=== PATIENT | female | born 1940 | race Caucasian/White ===

== ENCOUNTER 2018-07-11 09:38 | Day surgery (SDC) | payer MEDICARE, OTHER ==
[2018-07-05 11:33] VITALS: BMI 20.9
[~2018-07-11 09:38] MED LIST: DEXAMETHASONE SOD PHOSPHATE 10 MG/ML 1 ML VIAL IV ONE; HYDROmorphone 0.5 MG/0.5 ML SYRINGE IVP PRN; LACTATED RINGERS 1,000 ML IV SCH; LIDOCAINE 1% 20 ML VIAL (10MG/ML) FOR IV START INTRADERMA PRN; LIDOCAINE VISCOUS 2% 15 ML CUP MUCOUS MEM ONE; ONDANSETRON 4 MG/2 ML VIAL IVP ONE; SCOPOLAMINE 1.5MG/72HR PATCH TRANSDERM ONE
[2018-07-11] MEDS ORDERED: LIDOCAINE HCL/PF 20 MG/ML ML INHALATION ONE (10:15)
[2018-07-11 10:16] VITALS: TEMP 98.4
[2018-07-11 10:18] LABS: Glucose,Whole Blood 75 mg/dL (75-99)
[2018-07-11] MEDS: ALBUTEROL NEB (CONC) 2.5 MG/0.5 ML INHALATION ONE (10:29)
[2018-07-11] MEDS ORDERED: LIDOCAINE 1% INJ 10MG/ML (20 ML MDV) ONE (11:01)
[2018-07-11] MEDS ORDERED: PROPOFOL 10 MG/ML 20 ML VIAL IV ONE (11:01)
[2018-07-11] MEDS ORDERED: KETAMINE 10 MG/ML 20 ML VIAL ONE (11:01)
[2018-07-11 11:23] VITALS: RESP 18
[2018-07-11 11:36] VITALS: BP 158/78; PULSE 103
--- NOTE | 2018-07-11 11:53 | PCN ---
PROCEDURE NOTE PROCEDURE: Bronchoscopy, airway examination, therapeutic lavage, BAL right middle lobe. PREOPERATIVE DIAGNOSIS: Pneumonia. POSTOPERATIVE DIAGNOSIS: Pneumonia. there was informed consent. There was universal timeout. The procedure was done by Dr. Turner and Dr. Steinbreg, [employer] provided general anesthesia/unconscious sedation. After the patient was adequately sedated and being fully monitored, the bronchoscope was inserted through the right nostril. It passed through the right nasopharynx into the oropharynx. The hypopharynx was identified and topicalized. The hypopharyngeal structures including anterior commissure, true cords, false cords, arytenoids, piriform sinuses, right and left vallecula and epiglottis all appear normal. After topicalization, the bronchoscope was pushed through the glottic opening into the trachea. Trachea appeared normal. Tracheal danae was sharp. Right and left mainstem were topicalized. Right upper lobe and its 3 segments, right middle lobe and its 2 segments, right lower lobe and its 5 segments, the lingula and its 2 segments, the left upper lobe proper and its 2 segments and the left lower lobe and its 4 segments all appeared relatively normal, save for diffuse erythema and hyperemia. There was some vascular prominence and mucosal friability. There was no dominant mass or tumor. There were thick secretions noted throughout, particularly in the right middle lobe and the right lower lobe. They were suctioned without difficulty. The right middle lobe was then subjected to BAL. The patient tolerated the procedure well. There was no immediate complication. Afterwards, the bronchoscope was withdrawn. The patient will be recovered. SPECIMENS: Will be sent to the laboratory for analysis. MMODL / IJN: [id number] /
[2018-07-11 16:41] LABS: Appearance,BF Blood Tinged; Color,BF Colorless
[2018-07-11 18:23] LABS: Nucleated Cells, Body Fluid 300 /uL; RBC, Body Fluid 1400 /uL
[2018-07-11 18:28] LABS: Mononuclear WBC,Body Fluid 3 %; Polynuclear WBC,Body Fluid 97 %; Total Cells Counted,Body Fluid 100
[2018-07-12] MEDS ORDERED: ATROPINE SULFATE 0.4 MG/ML 1 ML VIAL IM ONE (05:00)
== END 2018-07-11 11:49 | disposition home or self-care (01) ==
LOC: ORWHC2ENDO 09:38
PROVIDERS: ATTEND Internal Medicine Critical Care Medicine
DX: J18.9 Pneumonia, unspecified organism (principal); J40 Bronchitis, not specified as acute or chronic; K21.9 Gastro-esophageal reflux disease without esophagitis; F41.9 Anxiety disorder, unspecified; E78.2 Mixed hyperlipidemia; Z87.891 Personal history of nicotine dependence; N32.81 Overactive bladder; Z79.51 Long term (current) use of inhaled steroids; Z79.52 Long term (current) use of systemic steroids; Z79.899 Other long term (current) drug therapy
CPT/HCPCS: 31624; 87070; 87102; 87116; 87205; 87206; 87252; 87496; 87498; 87502; 87529; 87634; 87798; 88108; 88305; 89050; 94640